=== PATIENT | male | born 1965 | race Caucasian/White ===

== ENCOUNTER 2017-10-30 07:57 | Emergency (ER) | payer OTHER ==
[~2017-10-30] VITALS: Ht 177.8 cm; Wt 72.6 kg
[2017-10-30 08:05] VITALS: Ht 177.8 cm; Wt 72.6 kg
[2017-10-30 09:13] VITALS: BP 128/82
== END 2017-10-30 09:13 | disposition other institution (70) ==
LOC: ED 07:57
DX: Z02.89 Encounter for other administrative examinations (principal)